=== PATIENT | female | born 1955 | race Two or more races ===

== ENCOUNTER 2023-02-04 19:27 | Emergency (ER) | payer MEDICAID, OTHER ==
[~2023-02-04] VITALS: Ht 165.1 cm; Wt 99.3 kg
[2023-02-04] MEDS ORDERED: LIDOCAINE 5% (PATCH) 1 EA PATCH TP ONE ×2 (20:44→21:02)
[2023-02-04] MEDS ORDERED: CYCLOBENZAPRINE 10 MG TABLET ONE (20:44)
[2023-02-04] MEDS ORDERED: KETOROLAC TROMETHAMINE 15 MG/ML VIAL ONE (20:44)
[2023-02-04] MEDS: LIDOCAINE 5% (PATCH) 1 EA PATCH TP SCH ×2 (20:49→21:08)
[2023-02-04] MEDS ORDERED: KETOROLAC TROMETHAMINE INJ 60 MG/2 ML VIAL IM ONE (21:00)
[2023-02-04] MEDS ORDERED: CYCLOBENZAPRINE 10 MG TABLET PO ONE (21:00)
[2023-02-04] MEDS ORDERED: CYCL5TAB PO (21:53)
[2023-02-04] MEDS ORDERED: LIDO30AD10 TP (21:53)
[2023-02-04] MEDS ORDERED: NAPR-1164 PO (21:53)
[2023-02-04 22:09] VITALS: BP 159/83; TEMP 97.9; O2SAT 99
== END 2023-02-04 22:09 | disposition home or self-care (01) ==
LOC: ER 19:29
DX: S13.4XXA Sprain of ligaments of cervical spine, initial encounter (principal); S33.5XXA Sprain of ligaments of lumbar spine, initial encounter; V89.2XXA Person injured in unspecified motor-vehicle accident, traffic, initial encounter; Y93.89 Activity, other specified; Y92.89 Other specified places as the place of occurrence of the external cause; Y99.8 Other external cause status
CPT/HCPCS: 99285; 70450; 96372; J1885